=== PATIENT | female | born 1990 | race Asian ===

== ENCOUNTER 2017-08-12 14:10 | Emergency (ER) | payer OTHER ==
[2017-08-12 16:57] VITALS: BP 109/69
== END 2017-08-12 17:44 | disposition home or self-care (01) ==
LOC: ED 14:10
DX: J11.1 Influenza due to unidentified influenza virus with other respiratory manifestations (principal)

== ENCOUNTER 2017-08-15 09:34 | Emergency (ER) | payer OTHER ==
[~2017-08-15] VITALS: Ht 162.6 cm; Wt 47.6 kg
[2017-08-15 09:44] VITALS: Ht 162.6 cm; Wt 47.6 kg
[2017-08-15 11:37] VITALS: BP 114/67
== END 2017-08-15 11:55 | disposition home or self-care (01) ==
LOC: ED 09:34
DX: J02.9 Acute pharyngitis, unspecified (principal); R19.7 Diarrhea, unspecified; R05 Cough